=== PATIENT | male | born 1965 | race Caucasian/White ===

== ENCOUNTER 2023-12-03 05:42 | Day surgery (SDC) | payer MEDICARE, MEDICAID ==
[2023-12-02 13:26] VITALS: BMI 23.8
[2023-12-03] MEDS ORDERED: Lidocaine 2% PF 5 ML VIAL ONE (06:57)
[2023-12-03] MEDS ORDERED: PROPOFOL 40 ML ONE (06:58)
[2023-12-03] MEDS ORDERED: PHENYLEPHRINE-NS 100 MCG/ML 10 ML SYRINGE ONE (08:12)
== END 2023-12-03 09:15 | disposition home or self-care (01) ==
LOC: SDC 05:42
PROVIDERS: ATTEND Internal Medicine Gastroenterology
PROC: 0DJD8ZZ Inspection of Lower Intestinal Tract, Via Natural or Artificial Opening Endoscopic (ICD-10-PCS; principal; 2023-12-03)
DX: Z12.11 Encounter for screening for malignant neoplasm of colon (principal); M19.90 Unspecified osteoarthritis, unspecified site
CPT/HCPCS: G0121; J2001; J2704